=== PATIENT | female | born 1985 | race Two or more races ===

== ENCOUNTER 2017-10-15 12:53 | Emergency (ER) | payer OTHER ==
[2017-10-15 12:58] VITALS: BP 121/68; PULSE 91; TEMP 98.9; BMI 23.9
--- NOTE | 2017-10-15 15:36 | PDOC ---
History of Present Illness - General Chief Complaint: Nausea/Vomiting Stated Complaint: NAUSEA/VOMITING/8 WKS Time Seen by Provider: 10/15/17 15:04 History Source: Patient Exam Limitations: No Limitations - History of Present Illness Initial Comments: 10/15/17 15:30 Patient is a 32-year-old female who is currently 8 weeks presents emergency Department with vomiting . Patient has been having bouts of nausea and vomiting since early . Has been seen and evaluated by her LATHER APPRENTICE diagnosed with hyperemesis . Yesterday patient vomited multiple times has been trying to stick to a vegan diet. Prior to arrival today patient was able to eat almonds and grapes, tolerating fluids. Her boyfriend called her OB/ MACHINE OPERATOR HAY STACKER and told them that she was vomiting and unable to hold anything down referred them to come to emergency department for IV hydration however patient is tolerating by mouth now and has no complaints of nausea. Patient denies any vaginal bleeding, does have clear discharge on occasion since early told it was leukorrhea, no back pain, abdominal pain, cramping, chest pain, or shortness of breath. Denies any urinary pain, frequency or hematuria. Past Medical History: [Denies]. Allergies: No known allergies Medications: [ vitamins takes in the a.m.] Family History: Non-contributory Social History: Denies smoking, alcohol use, or IVDU Vital signs on arrival are [notable for pulse of 1.] Review of Systems GENERAL/CONSTITUTIONAL: [No fever or chills. No weakness. No weight change.] HEAD, EYES, EARS, NOSE AND THROAT: [No change in vision. No ear pain or discharge. No sore throat. ] CARDIOVASCULAR: [No chest pain or shortness of breath.] RESPIRATORY: [No cough, wheezing, or hemoptysis.] GASTROINTESTINAL: [No nausea, vomiting, diarrhea or constipation. No rectal bleeding.] GENITOURINARY: [No dysuria, frequency, or change in urination.] MUSCULOSKELETAL: [No joint or muscle swelling or pain. No neck or back pain.] SKIN : [No rash or easy bruising.] NEUROLOGIC: [No headache, vertigo, loss of consciousness, or loss of sensation.] PSYCHIATRIC: [No depression or anxiety.] ENDOCRINE: [No increased thirst. No abnormal weight change.] HEMATOLOGIC/LYMPHATIC: [No anemia, easy bleeding, or history of blood clots.] ALLERGIC/IMMUNOLOGIC: [No hives or skin allergy. No latex allergy.] Physical Exam: GENERAL: [The patient is awake, alert, and fully oriented, in no acute distress. ] HEAD: [Normal with no signs of trauma.] EYES: [Pupils equal, round and reactive to light, extraocular movements intact, sclera anicteric, conjunctiva clear.] ENT: [Ears normal, nares patent, oropharynx clear without exudates. Moist mucous membranes. No uvula deviation] NECK: [Normal range of motion, supple without lymphadenopathy, JVD, or masses.] LUNGS: [Breath sounds equal, clear to auscultation bilaterally. No wheezes, and no crackles.] HEART: [Regular rate and rhythm, normal S1 and S2 without murmur, rub or gallop. ] ABDOMEN: [Soft, nontender, normoactive bowel sounds. No guarding, no rebound. No masses. No bruising or abrasions] MUSCULOSKELETAL: [Normal range of motion, no edema. No clubbing or cyanosis. No cords, erythema, or tenderness. No CVA Tenderness with fist.] NEUROLOGICAL: [Cranial nerves II through XII grossly intact. Normal speech, normal gait.] PSYCH: [Normal mood, normal affect.] SKIN: [Warm, Dry, normal turgor, no rashes or lesions noted.] 10/15/17 15:36 10/15/17 15:46 Past History - Past Medical History Allergies/Adverse Reactions: Allergies Allergy/AdvReac Type Severity Reaction Status Date / Time No Known Allergies Allergy Verified 10/15/17 12:57 Home Medications: Ambulatory Orders Doxylamine Succinate/Vit B6 [Vinayak Vicente 10-10 mg Tablet] 1 each PO BID #10 tablet. 10/15/17 COPD: No Other medical history: denies - Suicide/Smoking/Psychosocial Hx Smoking History: Never smoked Information on smoking cessation initiated: No Hx Alcohol Use: No Drug/Substance Use Hx: No Substance Use Type: None *Physical Exam - Vital Signs Last Vital Signs Temp Pulse Resp BP Pulse Ox 98.9 F 91 H 18 121/68 100 10/15/17 12:54 10/15/17 12:54 10/15/17 12:54 10/15/17 12:54 10/15/17 12:54 Medical Decision Making - Medical Decision Making 10/15/17 15:37 A/P: Patient here for evaluation of hyperemesis I spoke to patient's OB/ MACHINE OPERATOR H[employer] STACKER Ester Enriquez women to women, . She was under the impression the patient was continually vomiting and unable to take in by mouth she did not speak to patient directly spoke to her boyfriend. Was misinform the patient is able to take in by mouth drink and eat without difficulty. She agrees to discharge patient home to follow-up in office with prescription for Diclegis. Patient was concerned that she had to eat healthy, thought that bread may cause yeast infections I told patient that if she has nausea she should eat crackers or bread or something bland. Increase fluid intake. *DC/Admit/Observation/Transfer Diagnosis at time of Disposition: Hyperemesis gravidarum - Discharge Dispostion Disposition: HOME Condition at time of disposition: Good Admit: No - Prescriptions Prescriptions: Doxylamine Succinate/Vit B6 [Dicgagandeepgis Dr 10-10 mg Tablet] 1 each PO BID #10 tablet.dr - Referrals - Patient Instructions Printed Discharge Instructions: DI for Hyperemesis Gravidarum Additional Instructions: Please make sure to stay well-hydrated, increase fluids [place] diet, bread rice, toast Follow-up with LATHER APPRENTICE in 2 days Vaginal bleeding, discharge, pain, urinary symptoms, fever, or any other concerns return to ER - Post Discharge Activity Forms/Work/School Notes: Back to Work
== END 2017-10-15 16:06 | disposition home or self-care (01) ==
LOC: JER 12:53
DX: O26.891 Other specified pregnancy related conditions, first trimester (principal); O21.0 Mild hyperemesis gravidarum; Z3A.08 8 weeks gestation of pregnancy
CPT/HCPCS: 99281-25